=== PATIENT | female | born 1995 | race Caucasian/White ===

== ENCOUNTER 2024-09-25 13:47 | Outpatient (CLI) | payer OTHER, SELFPAY ==
--- NOTE | 2024-09-25 14:00 | CRLHL7_ITS ---
For Patients: As a result of the Cures Act, medical imaging exams and procedure reports are released immediately into your electronic medical record. You may view this report before your referring provider. If you have questions, please contact your health care provider. INDICATION: First trimester scan, establish dates. TECHNIQUE: Real-time colon-scale imaging of the pelvis was performed. FINDINGS: Sonographic imaging demonstrates a single living intrauterine gestation. The embryo demonstrates a regular cardiac rate measuring 167 beats per minute. The embryo`s crown-rump length measurement of 1.7 cm corresponds to a gestational age of 8 weeks 1 day with a sonographic due date of 05/06/2025 . There is a normal-appearing yolk sac. Ovaries appear unremarkable. Right ovary is unremarkable measuring 2.7 x 1.6 x 1.7 centimeters left ovary measures 6.2 x 2.3 x 5.1 centimeters simple appearing left ovarian 3.8 centimeter x 2.1 x 3.5 centimeter cyst or para ovarian cyst. Left ovarian corpus luteum cyst present normal blood flow left ovarian corpus luteum cyst. Normal blood flow to both ovaries. IMPRESSION: Early intrauterine gestation. Gestational age calculated at 8 weeks 1 day with a sonographic due date of 05/06/2025 . Left 3.8 centimeter ovarian cyst or paraovarian cyst. Dictated by Randa Juan MD @ 09/26/2024 7:09:09 AM (Electronically Signed)
== END 2024-09-25 13:48 | disposition home or self-care (01) ==
LOC: US 13:49
PROVIDERS: Visit Provider Physician Assistant
DX: Z34.91 Encounter for supervision of normal pregnancy, unspecified, first trimester (principal); O34.81 Maternal care for other abnormalities of pelvic organs, first trimester; N83.202 Unspecified ovarian cyst, left side; Z3A.08 8 weeks gestation of pregnancy
CPT/HCPCS: 76817; 83021; 86592; 86703; 86704; 86706; 86762; 86787; 86803; 86850; 86900; 86901; 87086; 87340; 87491; 87591

== ENCOUNTER 2024-12-13 07:02 | Outpatient (CLI) | payer OTHER, SELFPAY | END 2024-12-13 07:03 | disposition home or self-care (01) | LOC: US 07:04 | PROVIDERS: Visit Provider Midwife | DX: Z34.92 Encounter for supervision of normal pregnancy, unspecified, second trimester (principal); Z3A.19 19 weeks gestation of pregnancy | CPT/HCPCS: 76811 ==

== ENCOUNTER 2025-02-13 16:17 | Outpatient (CLI) | payer OTHER, SELFPAY | END 2025-02-13 16:18 | disposition home or self-care (01) | LOC: NFLDREF 02-15 19:21 | PROVIDERS: Visit Provider Registered Nurse | DX: Z34.83 Encounter for supervision of other normal pregnancy, third trimester (principal) | CPT/HCPCS: 86592 ==

== ENCOUNTER 2025-04-06 10:00 | Outpatient (CLI) | payer OTHER, BC, SELFPAY | END 2025-04-06 10:01 | disposition home or self-care (01) | LOC: NFLDREF 04-11 11:09 | PROVIDERS: Visit Provider Advanced Practice Midwife | DX: Z34.93 Encounter for supervision of normal pregnancy, unspecified, third trimester (principal); Z3A.36 36 weeks gestation of pregnancy | CPT/HCPCS: 87081; 87653 ==

== ENCOUNTER 2025-04-10 15:00 | Outpatient (CLI) | payer OTHER, BC, SELFPAY ==
[2025-04-10 15:21] VITALS: RESP 16; TEMP 36.7
[2025-04-10 15:22] VITALS: PULSE 87; O2SAT 94
[2025-04-10 15:23] VITALS: PULSE 84; O2SAT 97
[2025-04-10 15:25] VITALS: BP 109/67; PULSE 86
[2025-04-10 15:37] LABS: Appearance Urine Clear (Clear)
[2025-04-10 15:45] LABS: Amnisure Rom* Negative
--- NOTE | 2025-04-10 17:08 | PC.OBNST ---
NST Note NST Note Start: 04/10/25 15:05 Freq: ONCE Status: Active Protocol: Document 04/10/25 17:06 BAW (Rec: 04/10/25 17:07 BAW No Response) NST Note 2 Para (# of births) 1 EDC 05/04/25 Gestational Age In 36 Weeks & 4 Days Weeks & Days High Risk Factors History of /Stillborn Patient Presented Leaking fluid with Complaint(s) of Reactive Yes Appropriate for Yes Gestational Age KALEY Fournier RNC Date 04/10/25 Reactive Yes Appropriate for Yes Gestational Age KALEY Burt RN Date 04/10/25 OB NST charge Yes Complete NST Note Yes via Write Note The provider's electronic signature indicates the NST is reactive/appropriate for gestational age. *Note to provider: If an addendum is required, open the patient's chart and click on the note under the Nurse/Allied Health tab.
== END 2025-04-10 16:30 | disposition home or self-care (01) ==
LOC: OB OUT 15:01 → OB 15:01
PROVIDERS: Visit Provider Advanced Practice Midwife
DX: O47.03 False labor before 37 completed weeks of gestation, third trimester (principal); Z3A.36 36 weeks gestation of pregnancy
CPT/HCPCS: 59025; 81001; 81003; 84112; 87086; G0463

== ENCOUNTER 2025-05-09 06:59 | Outpatient (CLI) | payer BC, SELFPAY ==
--- NOTE | 2025-05-09 07:15 | CRLHL7_ITS ---
For Patients: As a result of the Cures Act, medical imaging exams and procedure reports are released immediately into your electronic medical record. You may view this report before your referring provider. If you have questions, please contact your health care provider. OB ULTRASOUND ELIZA by LMP: 05/04/2025. GA: 40 w, 5 d. Single. Comparison: 12/13/2024, 09/25/2024. INDICATION: Post-term. TECHNIQUE: Real time grayscale imaging of the fetus was performed. Transabdominal. CERVIX: Not visualized. POSITIONING: Vertex. AMNIOTIC FLUID: 4 cm. SDP (N: greater than 2 x 1 cm) BIOPHYSICAL PROFILE: 2: Gross body movements 2: tone 2: Respiratory activity 2: Amniotic fluid SDP (N: greater than 2 x 1 cm) 8/8: Total score PLACENTA: Technique: Transabdominal. PLACENTA POSITION: Posterior. DOPPLER: heart rate: 134 bpm. IMPRESSION: 1. Normal biophysical profile score 8/8. 2. Grade 3 placenta. Aguilar Cano M.D. Diagnostic Radiologist [email or web address] FRANKIE/lisa [email or web address]/Dictated by: Aguilar Cano MD @ 05/09/2025 8:47:00 AM (Electronically Signed)
== END 2025-05-09 07:00 | disposition home or self-care (01) ==
LOC: US 07:00
PROVIDERS: Visit Provider Midwife
DX: O48.0 Post-term pregnancy (principal); O77.0 Labor and delivery complicated by meconium in amniotic fluid; O70.1 Second degree perineal laceration during delivery; O99.344 Other mental disorders complicating childbirth; F32.A Depression, unspecified; O99.02 Anemia complicating childbirth; D64.9 Anemia, unspecified; Z87.59 Personal history of other complications of pregnancy, childbirth and the puerperium; Z37.0 Single live birth; Z3A.41 41 weeks gestation of pregnancy; O71.7 Obstetric hematoma of pelvis
CPT/HCPCS: 76819

== ENCOUNTER 2025-05-09 09:49 | Outpatient (CLI) | payer BC, SELFPAY ==
[2025-05-10 10:13] LABS: Strep B DNA Probe Negative (Negative)
[2025-05-10 10:33] LABS: Strep B Susceptibility Needed? No
== END 2025-05-09 09:50 | disposition home or self-care (01) ==
PROVIDERS: Visit Provider Advanced Practice Midwife
DX: O48.0 Post-term pregnancy (principal); Z3A.40 40 weeks gestation of pregnancy
CPT/HCPCS: 87081; 87653

== ENCOUNTER 2025-05-11 12:10 | Inpatient (IN) | payer BC, SELFPAY ==
[2025-05-11] VITALS (56 sets, daily range): BP systolic 93–149; BP diastolic 50–84; PULSE 85–136; RESP 16–25; TEMP 36.6–37.1; O2SAT 98–100; BMI 27.3
--- NOTE | 2025-05-11 12:18 | P.LDBA_ITS ---
Subjective History of Present Illness Narrative: Sabra is a 29 yo at 41 0/7 weeks gestation being admitted to Labor and Delivery for spontaneous onset of labor. She reports she had a membrane sweep on Wednesday with some bloody show that evening and occasional contractions. She then starting having more contractions throughout the day on . Last evening the started to become regular and more intense. She denies any leaking of fluid or bleeding. She endorses movement. Her full history and physical was dictated by DESIRE Paz on 04/13/2025. Please see this for details. Specific Issues/Plans Partner: Ray It is a girl! First child was Britntey stillborn at 23w6d. H&P: 04/13/2025 by Wilfrido PHIPPS # history of IUFD at 23 weeks, NIPT high risk for Monosomy X, large cystic hygroma-Brittney NIPT: low risk Declined genetic counseling # FOB sister: IUFD at 21 weeks, Turners Syndrome # Anemia. PO supplementation. # Depression Lexapro 5mg # right ovarian cyst, 3.8 cm Imagin09/25/24-Early intrauterine gestation. Gestational age calculated at 8 weeks 1 day with a sonographic due date of 05/06/2025 . Left 3.8 centimeter ovarian cyst or paraovarian cyst. ? Vaccinations: COVID: initial series, one booster Flu: last one 2021 Tdap: 02/26/2025 RSV: out of season 32 week mental health: [] Last pap: 04/21/22, NIL. PP pap OB - Problem Based A/P Additional Plan (1) Pain during labor: Status: Acute (2) 41 weeks gestation of : Status: Acute (3) Anemia: Status: Acute (4) Depression: Status: Acute (5) History of IUFD: Problem details: At 23 weeks, Monosomy X, IOL Status: Acute Plan ASSESSMENT:? 29 yo at 41 0/7 weeks gestation? complicated by:?history of IUFD at 23 weeks, NIPT high risk for Monosomy X, large cystic hygroma-Brittney, FOB sister: IUFD at 21 weeks, Turners Syndrome, Anemia, Depression, right ovarian cyst, 3.8 cm Labor type: Spontaneous, Early labor? Category 1 FHR pattern.?? Labor complicated by: none? GBS negative? ? PLAN:? 1. Routine intrapartum cares as ordered. Continue with expectant management? 2. Monitoring per policy, intermittent unless she desires epidural then continuous 3. Planning possible epidural for pain management. Candidate for analgesia of ch oice, when desired.??IV in place and CBC if epidural requested. 4. Patient encouraged to reposition and ambulate to promote physiologic labor and .? 5. Anticipate ? Delivery/Labor/Induction Plan Plan: expectant management OB Result Labs Blood Type: A (+) positive GBS Status: negative OB Exam Physical Exam Vital signs: Temp Pulse Resp BP Pulse Ox 98.2 F 96 20 128/84 98 05/11/25 11:34 05/11/25 11:34 05/11/25 11:34 05/11/25 11:34 05/11/25 11:36 Narrative: Vitals Reviewed Constitutional:? Alert and oriented x3 HEENT:? Normocephalic, atraumatic Neck:? Supple Lungs:? Clear to auscultation bilaterally Heart:? Regular rate and rhythm, no murmur, rub or gallop Abdomen:? Soft, nontender, and gravid. Vertex by Gm's, confirmed with cervical exam. Extremities:? No edema or erythema Cervix: 5 cm/80%/-1 station/vertex NST: 150 bpm/moderate variability/15x15 accelerations/no decelerations/contractions Detailed Labor and Delivery Exam Patient Gravid: yes
[2025-05-11] MEDS: CALCIUM CARBONATE 500 MG CHEW PO ×2 (13:22→17:52)
[2025-05-11 14:08] LABS: Hematocrit 37.7 % (33.0-51.0); Hemoglobin* 12.6 gm/dL (12.0-16.0); Immature Granulocytes Pct Auto 0.4 %; Mean Corpuscular HGB Conc 33 gm/dL (32-36); Mean Corpuscular Hemoglobin 31 pg (26-34); Mean Corpuscular Volume 92 fL (80-100); RDW Coefficient of Variation % 13.9 % (11.5-15.5); Red Blood Count 4.11 m/uL (4.00-5.20); White Blood Count* 22.49 K/uL (4.50-11.00)
[2025-05-11 14:44] LABS: Immature Granulocytes Abs Auto 0.10 K/uL (0.00-0.30); Lymphocytes Absolute Auto 1.00 K/uL (0.90-2.90); Slide Review Reflex No
[2025-05-11] MEDS: LACTATED RINGERS 1000 ML 1,000 ML 1200 ML IV (15:15)
[2025-05-11] MEDS: LIDOCAINE 2% (PF) 5 ML VIAL EPIDURAL (15:36)
[2025-05-11] MEDS: ROPIVACAINE 0.2% 100 ml 100 ML 12 MG EPIDURAL ×2 (15:55→22:55)
--- NOTE | 2025-05-11 15:57 | PM.ANBPRC ---
[facility] Medical History (Updated 05/09/25 @ 10:35 by Marlena Vergara CNM) History of IUFD ?Z87.59 - Personal history of other complications of , childbirth and the puerperium (ICD-10) Family history of King syndrome ?Z82.79 - Family history of other congenital malformations, deformations and chromosomal abnormalities (ICD-10) Depression ?F32.A - Depression, unspecified (ICD-10) Surgical History (Updated 04/13/25 @ 14:11 by Nisha Louis CNM) H/O wisdom tooth extraction ?K08.409 - Partial loss of teeth, unspecified cause, unspecified class (ICD-10) History of ovarian cystectomy ?Z98.890 - Other specified postprocedural states (ICD-10) ?Z87.42 - Personal history of other diseases of the female genital tract (ICD-10) Family History Mother Graves disease Maternal Grandfather Brain aneurysm Maternal Grandmother Myocardial infarction High cholesterol Paternal Grandmother Breast cancer, Onset Age: 53 Paternal Grandfather ALS (amyotrophic lateral sclerosis) Other King syndrome Social History Narrative: Occupation: Teacher. Marital status: . Amish/cultural needs: no. Chemical or radiation exposure: no. Pre- tobacco use: no. Pre- alcohol use: 2/month. Current tobacco use: no. Current alcohol use: no. Recreational drug use: no. Dietary restrictions: no. Blood transfusion acceptable in an emergency: yes. PSYCHOSOCIAL HISTORY: History of depression or currently depressed: yes. Current or past physical, emotional, or sexual mistreatment: no. Problems that will make it hard to make it to appointments: no. What is your current living situation?: I presently have a place to live Problems where you live: no known problems In the past 12 months, utilities in danger of being shut off: no In past 12 months, lack of transportation kept you from medical appts, meetings, work, or getting things needed for daily living: no In the past 12 mos, have been you worried that your food would run out before you had money to buy more?: never true In the past 12 mos, the food you bought just didn't last and you didn't have money to buy more?: never true Smoking Status: Never smoker How often does anyone, including family, friends and others, physically hurt you: never How often does anyone, including family, friends and others, insult or talk down to you: never How often does anyone, including family, friends and others, threaten you with harm: never How often does anyone, including family, friends and others, scream or curse at you: never Meds Home Medications and Allergies Home Medications ?Medication ?Instructions ?Recorded ?Confirmed ?Type [id number] 3 fatty no.1 27 1 cap PO DAILY 09/25/24 05/11/25 History mg-1 mg-300 mg capsule Saccharomyces boulardii 250 mg 250 mg PO DAILY 09/25/24 05/11/25 History capsule (Daily Probiotic (S. boulardii)) albuterol sulfate 90 mcg/actuation 2 puff inhalation Q4H PRN 01/24/25 05/11/25 Rx aerosol inhaler shortness of breath or wheezing #1 ea ferrous sulfate 325 mg (65 mg 325 mg PO Q OTHER DAY #90 tabs 05/04/25 05/11/25 Rx iron) tablet Allergies Allergy/AdvReac Type Severity Reaction Status Date / Time cat dander Allergy Mild Verified 05/11/25 11:56 Results Labs Labs: Laboratory Results - last 24 hr 05/11/25 13:50 WBC 22.49 H RBC 4.11 Hgb 12.6 Hct 37.7 MCV 92 MCH 31 MCHC 33 RDW Coeff of Hakeem 13.9 Plt Count 203 Neut % (Auto) 91.2 H Lymph % (Auto) 4.3 L [place] % (Auto) 4.0 Eos % (Auto) 0.0 Baso % (Auto) 0.1 Neut # (Auto) 20.50 H Lymph # (Auto) 1.00 [place] # (Auto) 0.90 Eos # (Auto) 0.00 Baso # (Auto) 0.00 Abs Immat Gran (auto) 0.10 Imm/Tot Granulo (auto) 0.4 Vital Signs Vital Signs: Last Vital Signs Temp 98.6 F 05/11/25 14:35 Pulse 115 H 05/11/25 15:55 Resp 17 05/11/25 14:35 BP 117/72 05/11/25 15:55 Pulse Ox 99 05/11/25 15:52 Anesthesia Procedures Epidural Insertion Patient Location: OB Start Time: 15:30 Stop Time: 16:05 Start Date: 05/11/25 Stop Date: 05/11/25 Reason for Block: primary anesthetic Patient Position: sitting Performed By: Jim Escobedo Preanesthetic Checklist: IV checked, risks and benefits discussed, surgical consent, monitors and equipment checked, pre-op evaluation, timeout performed and anesthesia consent Prep: chlorhexidine gluconate Monitoring: blood pressure monitoring, cardiac cath lab radiology technologist, continuous pulse oximetry and heart rate Approach: midline Vertebral Space: lumbar (1-5) Needle Type: Tuohy needle Injection Technique: continuous catheter (catheter) Needle gauge: 17 Needle Length (cm): 10 cm Needle Insertion Depth (cm): 4 Catheter Gauge: 19 Catheter Type: multi-orifice Catheter at skin depth (cm): 9 Test Dose Result: negative and lidocaine 1.5% with epinephrine 1 to 200,000
--- NOTE | 2025-05-11 19:17 | PM.OBPNL ---
Subjective Date Seen: 05/11/25 Narrative: Sabra is a 29 yo at 41 0/7 weeks gestation being admitted to Labor and Delivery for spontaneous onset of labor. She labored with position changes until deciding to get an epidural for labor analgesia. She is comfortable and has been able to rest some after. Her check after her epidural placement was 6.5/80/0. Objective Exam: Objective: Constitutional: Alert and oriented x3, no distress, coping well Vital signs stable, see nurse documentation Abdomen: gravid, contractions palpate moderate/strong with contractions and soft between Cervix: 7 cm/80%/0 station/vertex; AROM of clear, blood tinged fluid at 1853 NST: 145 bpm/moderate variability/15x 15 accelerations/no decelerations/contractions every 2 minutes after AROM (every 3-8 minutes prior to AROM) Vital Signs: Last Vital Signs Temp 97.8 F 05/11/25 19:07 Pulse 102 H 05/11/25 19:13 Resp 20 05/11/25 19:07 BP 149/69 H 05/11/25 19:13 Pulse Ox 100 05/11/25 19:06 Plan Plan: ASSESSMENT:? 29 yo at 41 0/7 weeks gestation? complicated by:?history of IUFD at 23 weeks, NIPT high risk for Monosomy X, large cystic hygroma-Brittney, FOB sister: IUFD at 21 weeks, Turners Syndrome, Anemia, Depression, right ovarian cyst, 3.8 cm Labor type: Spontaneous, Active labor? Category 1 FHR pattern.?? Labor complicated by: none? GBS negative? ? PLAN:? 1. Routine intrapartum cares as ordered. Discussed AROM due to minimal change since previous exam. Patient is agreeable to this. AROM of clear, blood tinged fluid. 2. Monitoring per policy, intermittent unless she desires epidural then continuous 3. Planning possible epidural for pain management. Candidate for analgesia of choice, when desired.??IV in place and CBC if epidural requested. 4. Patient encouraged to reposition and ambulate to promote physiologic labor and .? 5. Anticipate ?
[2025-05-11] MEDS: LACTATED RINGERS 1000 ML 1,000 ML 125 ML IV (19:19)
[2025-05-11] MEDS: FAMOTIDINE 20 MG TABLET PO (23:09)
--- NOTE | 2025-05-11 23:41 | P.OBPN_ITS ---
Subjective Date Seen: 05/11/25 Narrative: Sabra is a 29 yo at 41 0/7 weeks gestation being admitted to Labor and Delivery for spontaneous onset of labor. She labored with position changes until deciding to get an epidural for labor analgesia. She is comfortable and has been able to rest some after. She has had some episodes of heartburn and nausea that were treated with tums and pepcid. She is coping well but starting to have the labor shakes. She appears to be a little anxious but only expresses her an xiety regarding how long labor will be. There was more notable bloody appearing amniotic fluid, more than what I would expect with bloody show during vaginal exam. Objective Exam: Exam: Objective: Constitutional: Alert and oriented x3, no distress, coping well Vital signs stable, see nurse documentation Abdomen: gravid, contractions palpate moderate/strong with contractions and soft between Cervix: 8-9 cm/80%/0 station/vertex; Blood tinged fluid with exam NST: 145 bpm/moderate variability/15x 15 accelerations/variable/early decelerations/contractions every 1-3 minutes with AROM Vital Signs: Last Vital Signs Temp 98.7 F 05/11/25 23:27 Pulse 136 H 05/11/25 23:12 Resp 16 05/11/25 23:27 BP 126/63 05/11/25 23:12 Pulse Ox 98 05/11/25 22:01 Plan Plan: ASSESSMENT:? 29 yo at 41 0/7 weeks gestation? complicated by:?history of IUFD at 23 weeks, NIPT high risk for Monosomy X, large cystic hygroma-Brittney, FOB sister: IUFD at 21 weeks, Turners Syndrome, Anemia, Depression, right ovarian cyst, 3.8 cm Labor type: Spontaneous, Active labor? Category 2 FHR pattern.?? Labor complicated by: vaginal bleeding, more than bloody show? GBS negative? ? PLAN:? 1. Routine intrapartum cares as ordered. Continue with expectant management. Recommend IV pitocin due to concern for bleeding at this time. Reviewed concern with patient regarding risk of aburption due to bloody show/amniotic fluid. Recommended IV pitocin to speed up or augment labor. She declines at this time. Encouraged her to try to rest/sleep. Will reassesses in 1-2 hours. At that time, I would recommend IV pitocin to augment if unchanged. 2. Monitoring per policy, continuous with epidural 3. Continue with epidural for labor analgesic. Encouraged rest. 4. Patient encouraged to reposition to promote physiologic labor and .? 5. Continue to monitor bleeding and status with concern for abruption. 6. Anticipate ?
[2025-05-12] VITALS (38 sets, daily range): BP systolic 91–140; BP diastolic 51–78; PULSE 67–133; RESP 16–20; TEMP 36.4–37.5; O2SAT 94–100
[2025-05-12] MEDS: OXYTOCIN 30 unit/500 ML in NS 30 UNIT/500 ML BAG IVPB (00:34)
[2025-05-12] MEDS: LACTATED RINGERS 1000 ML 1,000 ML 125 ML IV (03:19)
[2025-05-12] MEDS: ROPIVACAINE 0.2% 100 ml 100 ML 12 MG EPIDURAL (05:22)
[2025-05-12] MEDS: OXYTOCIN 30 unit/500 ML in NS 30 UNIT/500 ML BAG 300 UNIT IVPB (07:04)
--- NOTE | 2025-05-12 07:16 | W.PM.OBVAGDE ---
OB Procedure Vag Delivery Mother Details Mother Details: The patient is a 29 year-old, 2, now Para 1, admitted on 05/11/25 at 41.0 weeks gestation. She was admitted for spontaneous onset of labor. : 2 Para: 1 Weeks Gestation: 41.1 Admission Date: 05/11/25 Additional Details Amniotic Membrane Status: SROM Amniotic Membrane Rupture Date: 05/11/25 Amniotic Membrane Rupture Time: 18:53 Amniotic Membrane Fluid Description: Clear, Meconium Stained (With pushing and at delivery) and Bloody (At time of AROM) Analgesia/Anesthesia Type: Epidural Waterbirth: No Pitcoin: Yes Intrapartal Events: Labor Augmentation Delivery augmentation: rupture of membranes and pitocin Labor Onset: 12:00 Complete: 03:59 Pushin:05 Heart: heart tones during second stage were category II with intermittent late decelerations and variable decelerations, moderate variability and return to baseline noted between contractions. Delivery Details Delivery Date: 05/12/25 Delivery Time: 06:49 Route of delivery: Gender: Female Viability: Alive; Heart Rate Present Position at Delivery: OA Delivery Details: Patient was admitted for spontaneous onset of labor. She received an epidural for labor analgesic. She was AROM'd for clear fluid at 1853 and slowly progressed. After slow change, the decision was made to augment labor with IV pitocin at midnight. At this time, she was having a moderate amount of vaginal bleeding and there was concern for abruption. She the progressed to complete at 0359 and pushing at 0405. She pushed well. Meconium stained fluid was noted with pushing. Fabby hameed was notified to attend delivery. of a viable female at 0649 in semi-fowlers on the bed. Vertex delivered MARGARET. Nuchal cord x1 easily reduced at perineum. No shoulder. Body delivered easily and without incident. Infant passed to mothers abdomen with a vigorous cry. Cord was clamped and cut at > 5 minutes. APGARS were 8 at one minute and 9 at five minutes respectively. Mouth was bulb suctioned. Intact placenta with a 3 vessel cord delivered spontaneously at 0703. Fundus firm. 2nd degree perineal laceration identified, extending down to rectal mucosa with rectal capsule intact and right labial extension. Care assumed by DESIRE Valdez for repair, completed in typical fashion. QBL 200 cc. Mother and baby stable; mother plans to breastfeed. Infant weight pending. 1 Minute Interval Total Score: 8 5 Minute Interval Total Score: 9 Additional Details Shoulder Dystocia: No Placenta Delivery Time: 07:03 Placental Delivery Description: Spontaneous Delivery repair: Vicryl Procedure Done: Global Blood Loss: 200 Laceration: Perineal - 2nd Degree (right labial extension) Episiotomy Description: None Blood Loss Measurement Type: QBL Bakri Used: No Sponge/Need Count Correct: Yes Cord Vessel Description: 3 Vessels, Nuchal Cord, Loose and Reduced Event Summary Status: Mother and were stable after delivery. Disposition: floor
[2025-05-12] MEDS: IBUPROFEN 600 MG TABLET PO (11:33)
[2025-05-13 01:28] VITALS: BP 106/67; PULSE 89; RESP 16; TEMP 36.8; O2SAT 98
[2025-05-13 04:44] VITALS: BP 115/75; PULSE 79; RESP 16; TEMP 36.7; O2SAT 98
--- NOTE | 2025-05-13 07:51 | P.OBPN_ITS ---
OB - PN:Subj Subjective Date Seen: 05/13/25 Patient comments OB post-: no complaints, pain well controlled, tolerating diet and flatus present [place] status: and doing well [place] feeding status: exclusively Narrative: Sabra feels well.? Her pain is well controlled with current medications.? She has no new complaints.? Urinary output is adequate and she is voiding without difficulty.? Has a good appetite, is tolerating a general diet, is passing flatus, and has not had a bowel movement.? Has scant amount of rubra lochia.? She is ambulating well. is going well. She would like to discharge home tomorrow and may desire to see before discharge depending on how feedings go today and overnight. OB - PN: Obj Exam Physical Exam: Vital signs: Temp Pulse Resp BP Pulse Ox O2 Del Method 98.0 F 79 16 115/75 98 Room Air 05/13/25 04:44 05/13/25 04:44 05/13/25 04:44 05/13/25 04:44 05/13/25 04:44 05/13/25 04:44 Narrative: GENERAL APPEARANCE:? normal affect, alert, no distress? MOOD:? appropriate? CHEST:? clear to auscultation and percussion? HEART:? regular rate and rhythm? BREASTS: soft, nontender, no erythema, nipples intact? ABDOMEN:? soft, non-tender the uterine fundus is U/2 and is appropriate for the stage of recovery.? PERINEUM:? mild edema of the perineum, there is a 2nd degree and labial lacer ation that is healing well.? EXTREMITIES:? normal and no edema? OB - PN: A/P Delivery Assessment and Plan (1) Anemia: Status: Acute (2) Depression: Status: Acute (3) History of IUFD: Problem details: At 23 weeks, Monosomy X, IOL Status: Acute (4) care following vaginal delivery: Status: Acute (5) Lactating mother: Status: Acute Plan day: 1 Plan: routine care Comments: Discharge home tomorrow.
[2025-05-13 08:00] VITALS: BP 114/79; PULSE 93; RESP 16; O2SAT 97
--- NOTE | 2025-05-13 09:17 | PM.ANPOST ---
Post Anesthesia Note Post Anesthesia Note Patient seen: Inpatient Respiratory Status: adequate Cardiovascular Status: adequate Mental Status: baseline Pain: adequate Temp: baseline Anesthetic awareness: N/A Complications: none Follow care: none
[2025-05-13] MEDS: DOCUSATE SODIUM 100 MG CAPSULE PO (13:08)
[2025-05-13] MEDS: IBUPROFEN 600 MG TABLET PO (14:19)
[2025-05-13 16:15] VITALS: BP 108/70; PULSE 76; RESP 16; TEMP 36.7; O2SAT 97
[2025-05-14 00:27] VITALS: BP 110/68; PULSE 72; RESP 16; TEMP 36.9; O2SAT 97
--- NOTE | 2025-05-14 07:13 | P.DS_ITS ---
DS: Providers Provider Date Seen: 05/14/25 Date of admission: 05/11/25 12:10 Primary care physician: Not a Local Provider Admitting Clinician: Magalis Suazo CNM Attending Physician on discharge: DESIRE Anna APRN Date of Discharge: 05/14/25 DS: Diagnosis Discharge Diagnosis (1) Lactating mother: Status: Acute (2) care following vaginal delivery: Status: Acute (3) Vulvar hematoma: Status: Acute Exam Narrative: Exam Narrative: GENERAL APPEARANCE:? normal affect, alert, no distress MOOD:? appropriate CHEST:? clear to auscultation HEART:? regular rate and rhythm ABDOMEN:? soft, non-tender the uterine fundus is At Umbilicus, Midline and is appropriate for the stage of recovery. PERINEUM:? mild edema of the perineum, there is a Perineal Lacerationwith a 2-3 cm hematoma on the left side of the repair that is not engorged and appears to be decreasing in size. Otherwise, laceration appears well approximated with mild edema and no erythema. EXTREMITIES:? normal and minimal edema Const: Vital Signs, click to edit/add: Vital Signs - 24 hr 05/13/25 08:00 05/13/25 16:15 05/14/25 00:27 Temperature 98.0 F 98.4 F Pulse Rate [Pulse Oximeter] 93 76 72 Respiratory Rate 16 16 16 Blood Pressure [Ri ght Arm] 114/79 108/70 110/68 Pulse Oximetry 97 97 97 Oxygen Delivery Me thod Room Air Room Air Room Air OB - DS: Summary Hospital Course Hospital Course: Sabra is a 29 y.o. G 2 P 1011 who was admitted to [facility] for [facility]I.? She had a NVD that was uncomplicated. The patient feels well.? The pain is well controlled with current medications.? She has no new complaints.? She is breast feeding and reports things are going well. the patient has done well.? Vitals have been stable.? She has remained afebrile.? Has a good appetite, is tolerating a general diet.? She is voiding without difficulty.? She is passing gas and has had a bowel movement.? She is ambulating and denies any dizziness.? Has small amount of rubra lochia. She is planning condoms/NFP for prevention.? ?? Problems: none? ?? plan:? Discharge home with baby.? Follow up in 2 weeks and 6 weeks.? , may see if needed? Hgb 12.6 prior to .. ? Care of hematoma reviewed. is to watch for any changes to it.? Labs WNL or stable with trending? ? ? Call for signs/symptoms of preeclampsia? Peripartum Data Infant delivery method: Vaginal Laceration description: Perineal - 2nd Degree Episiotomy description: None complications: none Infant Gender: Female Discharge Plan: Home Status at Discharge Functional status at discharge: independent ambulation Overall status at discharge: patient is progressing back to baseline Time Spent with Patient Time attestation: Total time spent providing and/or coordinating discharge services: Time spent: Less than 30 minutes Discharge Plan Discharge Disposition: Home, Self-Care Date of Admission: 05/11/25 12:10 Attending Provider on Discharge: Nisha Louis Primary Care Provider: Provider,Not a Local Condition: Stable Anticipated Discharge Date/Time: 05/14/25 12:00 Discharge Medications: Continued Saccharomyces boulardii [Daily Probiotic (S. boulardii)] 250 mg capsule 250 mg PO DAILY [id number] 3 fatty no.1 27-1-300 mg capsule 1 cap PO DAILY albuterol sulfate 90 mcg/actuation HFA aerosol inhaler 2 puff inhalation Q4H PRN (Reason: shortness of breath or wheezing) Qty: 1 0RF Discontinued ferrous sulfate 325 mg (65 mg iron) tablet 325 mg PO Q OTHER DAY Qty: 90 0RF Discharge Orders: Discharge Order (Routine); Ordered 05/14/25 Ordered By: Nisha Louis Consulting provider completed their portion of the discharge: Yes Patient Education: OB Over the Counter Medication Information, OB Vaginal/Breast Feeding Additional Instructions: Discharge instructions were reviewed with the patient including signs and symptoms of infection and home going medications Nothing vaginally for 6 weeks: no tampons or intercourse Do not drive while taking narcotic pain medication(s) Off Work or School for 6 weeks Symptoms to report to doctor: * Bleeding that saturates more than one pad per hour * Passing clots larger than the size of a golf ball * Pain not relieved by prescribed medication * Fever above 100.4 degrees Fahrenheit * A foul vaginal odor * Difficulty in emotions, mood, and functions * Thoughts of hurting yourself and/or * Painful, reddened area in your breast * Any drainage, redness, or tenderness in your IV/epidural site * Severe headache that doesn't improve after taking medications * Changes in vision, including temporary loss of vision, blurred vision, and/or light sensitivity * Upper abdominal pain (usually under ribs on the right side) * Decrease in urination or painful, frequent urinating * Chest pain * Shortness of breath * Tenderness or pain with redness and/swelling in the calf(s) of your leg 2-week visit: discuss feeding concerns, review control options and screen for anxiety/depression. 6-week visit for an annual exam. Please call the [facility] to schedule these appointments. consultation services are available to all mothers and babies for the first year after delivery.? To make an appointment, please call [phone]. Activity Level: Activity as Tolerated and No strenuous activity Discharge Diet: Regular Follow Up Appointments: [facility] [Provider Group] Forms: Patient Belongings, MyHealth Info Instructions
[2025-05-14] MEDS: IBUPROFEN 600 MG TABLET PO (08:29)
[2025-05-14] MEDS: DOCUSATE SODIUM 100 MG CAPSULE PO (08:30)
[2025-05-14 09:21] VITALS: BP 113/75; PULSE 84; RESP 16; TEMP 36.5; O2SAT 98
== END 2025-05-14 13:25 | disposition home or self-care (01) | DRG 560 ==
LOC: OB OUT 21:23 → OB 22:51
PROVIDERS: Admitting Provider Advanced Practice Midwife; Visit Provider Advanced Practice Midwife
DX: O48.0 Post-term pregnancy (principal); O77.0 Labor and delivery complicated by meconium in amniotic fluid; O70.1 Second degree perineal laceration during delivery; O71.7 Obstetric hematoma of pelvis; O99.344 Other mental disorders complicating childbirth; F32.A Depression, unspecified; O99.02 Anemia complicating childbirth; D64.9 Anemia, unspecified; Z87.59 Personal history of other complications of pregnancy, childbirth and the puerperium; Z37.0 Single live birth; Z3A.41 41 weeks gestation of pregnancy
CPT/HCPCS: 01967; 36415; 85025; 86592; G0463; A9270; J2795; J7120

== ENCOUNTER 2025-06-25 14:52 | Outpatient (CLI) | payer BC, SELFPAY ==
[2025-06-29 10:11] LABS: HPV Source Cervical
[2025-06-29 10:52] LABS: Pap Test Digital Imaging Done
== END 2025-06-25 14:53 | disposition home or self-care (01) ==
PROVIDERS: Visit Provider Advanced Practice Midwife
DX: Z12.4 Encounter for screening for malignant neoplasm of cervix (principal)
CPT/HCPCS: 87624; 87625; 88141; 88142; 88175